=== PATIENT | male | born 1940 | race Caucasian/White ===

== ENCOUNTER 2021-04-13 14:58 | Emergency (ER) | payer MEDICARE ==
--- NOTE | 2021-04-13 15:05 | ERPHSYRPT ---
- History of Present Illness Time Seen by Provider: 04/13/21 15:05 Source: patient Physician History: left without being seen. pt does not want to be evaluated Allergies/Adverse Reactions: No Known Drug Allergies Allergy (Unverified 01/29/14 12:45) Home Medications: ALPRAZolam 0.25 MG [xanAX 0.25 MG] 0.125 mg PO HS 01/29/14 [History] Donepezil HCl 10 mg [Aricept 10 MG] 10 mg PO HS 01/29/14 [History] Felodipine 5 mg [Plendil ER 5 mg] 5 mg PO DAILY 01/29/14 [History] Sertraline HCl [Zoloft] 150 mg PO DAILY 01/29/14 [History] Hx Influenza Vaccination/Date Given: No Hx Pneumococcal Vaccination/Date Given: No - Past Medical History Pertinent Past Medical History: Yes Neurological History: TIA Cardiac History: Hypertension Psycho-Social History: Depression - Past Surgical History Past Surgical History: Yes Gastrointestinal: Hernia Repair Musculoskeletal: Orthopedic Surgery Other Surgical History: carpel tunnel carlota wrists - Social History Smoking Status: Never smoker Exposure to second hand smoke: Yes Drug Use: none Patient Lives Alone: No - Departure Departure Disposition: Left without being seen Clinical Impression: Left knee pain Condition: Stable Critical Care Time: No Referrals: BING MICHEL [Primary Care Provider] -
[2021-04-13 15:32] VITALS: BP 152/73; PULSE 86; O2SAT 96
== END 2021-04-13 15:45 | disposition left against medical advice (07) ==
LOC: ED 14:58
DX: M25.562 Pain in left knee (principal); Z79.899 Other long term (current) drug therapy; I10 Essential (primary) hypertension
CPT/HCPCS: 99283

== ENCOUNTER 2021-04-20 16:06 | Inpatient (IN) | payer MEDICARE ==
[2021-04-20 16:38] LABS: Absolute Neutrophil Ct (ANC) 9.82 (1.4-6.9); BASOPHIL % 0.4 % (0.0-0.4); Basophil (Absolute #) 0.05 (0-0.4); Eosinophil % 1.1 % (0.00-5.0); Eosinophil (Absolute #) 0.13 (0-0.5); Hematocrit 48.6 % (42-50); Hemoglobin 15.3 gm/dl (12.5-18.0); Lymphocyte (Absolute #) 0.98 (1.0-4.6); Lymphocytes % 8.2 % (24.0-44.0); Mean Cell Volume 95.3 fl (78-100); Mean Corpuscular Hgb Concent. 31.5 g/dl (32-36); Mean Platelet Volume 9.9 fl (7.5-11.0); Monocyte (Absolute #) 0.93 (0.0-1.3); Monocytes % 7.8 % (0.0-12.0); Neutrophil % 82.5 % (36.0-66.0); Platelet Count 296 K/mm3 (150-450); Red Cell Distribution Width 14.1 % (11.5-14.0); White Blood Count 11.9 K/mm3 (4.0-10.5)
[2021-04-20 16:47] LABS: INR 0.92 (0.8-3.0); PROTIME 10.9 SECONDS (9.4-12.5)
[2021-04-20 16:50] LABS: PTT 31.9 SECONDS (25.1-36.5)
[2021-04-20 16:54] LABS: ALBUMIN 3.8 g/dL (3.5-5.0); ALKALINE PHOSPHATASE 125 U/L (38-126); BLOOD UREA NITROGEN 24 mg/dL (9-20); CHLORIDE 103 mmol/L (98-107); Calcium 8.7 mg/dL (8.4-10.2); Carbon Dioxide 22 mmol/L (22-30); Creatinine 1 1.01 mg/dL (0.66-1.25); EST GLOMERULAR FILTRATION RATE > 60.0 ML/MIN; Glucose 141 mg/dL (74-106); Potassium 4.3 mmol/L (3.5-5.1); SGOT/AST 28 U/L (17-59); SGPT/ALT 23 U/L (0-50); SODIUM 136 mmol/L (137-145); Total Protein 6.9 g/dL (6.3-8.2)
--- NOTE | 2021-04-20 16:58 | XRAY ---
Indication: Lethargy and confusion. Comparison: April 23, 2018. Portable chest demonstrates new minimal left base infiltrate versus atelectasis and right midlung discoid atelectasis/scarring. Heart not enlarged. Bony thorax intact again with osteopenia and degenerative changes.
--- NOTE | 2021-04-20 17:33 | XRAY ---
Indication: Confusion. Altered mental status. Multiple contiguous axial images obtained through the head without contrast. Comparison: January 29, 2014. There is age-appropriate global atrophy with new moderate periventricular degenerative micro-ischemia bilaterally. No acute intracranial hemorrhage, abnormal extra-axial fluid collection, or mass effect. Fourth ventricle is midline without hydrocephalus. Bony calvarium intact. Visualized paranasal sinuses and mastoid air cells are clear. Impression: Nonacute senile brain.
--- NOTE | 2021-04-20 18:14 | ERPHSYRPT ---
- History of Present Illness Source: patient, other (Son) Exam Limitations: other (Dementia) Patient Subjective Stated Complaint: EMS states "He has a UTI that he has been getting shots for and he got a shot today and after he could not walk well and the family took him home and called 911. family stated he has a history of dementia and tia." Triage Nursing Assessment: Pt presented alert and confused. Pt hard of hearing, able to move all extremities. PT able to speak in clear full sentences pt in no apparent respiratory distress. Pt resting comfortably on the cot. Physician History: 81yo wm w gradual lower extremity weakness. Pt is currently being tx'ed for UTI w Rocephin injection x2. Pt denies focal weakness/fever/N/V/D/cough/melen a/hematochezia/dysuria/hematuria. Pt has dementia and is a poor historian. Timing/Duration: other (Several weeks) Modifying Factors: Improves With: movement Associated Symptoms: No nausea, No vomiting, No abdominal pain, No shortness of breath, No heartburn, No diaphoresis, No cough, No chills, No chest pain, No fever, No headaches, No loss of appetite, No malaise, No rash, No syncope, No seizure, No weakness Allergies/Adverse Reactions: No Known Drug Allergies Allergy (Verified 04/20/21 16:27) Home Medications: ALPRAZolam 0.25 MG [xanAX 0.25 MG] 0.125 mg PO HS 01/29/14 [History] Donepezil HCl 10 mg [Aricept 10 MG] 10 mg PO HS 01/29/14 [History] Felodipine 5 mg [Plendil ER 5 mg] 5 mg PO DAILY 01/29/14 [History] Sertraline HCl [Zoloft] 150 mg PO DAILY 01/29/14 [History] Duloxetine HCl [Cymbalta] 60 mg PO DAILY 04/20/21 [History] Furosemide 20 mg [Lasix 20 mg] 20 mg PO DAILY 04/20/21 [History] Lamotrigine 25 mg PO DAILY 04/20/21 [History] Memantine HCl [Namenda] 10 mg PO DAILY 04/20/21 [History] Potassium Chloride 8 meq PO DAILY 04/20/21 [History] Hx Tetanus, Diphtheria Vaccination/Date Given: No Hx Influenza Vaccination/Date Given: No Hx Pneumococcal Vaccination/Date Given: No Immunizations Up to Date: Yes Travel Risk - International Travel Have you traveled outside of the country in past 3 weeks: No - Coronavirus Screening Are you exhibiting any of the following symptoms?: No Close contact with a COVID-19 positive Pt in past 14-21 Days: No - Vaccine Status Have you recieved a Covid-19 vaccination: 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[employer]: [employer] - Vaccination Dates Date of 2cond Vaccination (if applicable): 08/31/2020 - Review of Systems Constitutional: No Symptoms Eyes: No Symptoms Ears, Nose, & Throat: No Symptoms Respiratory: No Symptoms Cardiac: No Symptoms Abdominal/Gastrointestinal: No Symptoms Genitourinary Symptoms: No Symptoms Musculoskeletal: No Symptoms Skin: No Symptoms Neurological: No Symptoms Psychological: No Symptoms Endocrine: No Symptoms Hematologic/Lymphatic: No Symptoms Immunological/Allergic: No Symptoms - Past Medical History Pertinent Past Medical History: Yes Neurological History: TIA Cardiac History: Hypertension Psycho-Social History: Depression - Past Surgical History Past Surgical History: Yes Gastrointestinal: Hernia Repair Musculoskeletal: Orthopedic Surgery Other Surgical History: carpel tunnel carlota wrists - Social History Smoking Status: Never smoker Exposure to second hand smoke: Yes Drug Use: none Patient Lives Alone: No Significant Family History: no pertinent family hx - Nursing Vital Signs Nursing Vital Signs: Initial Vital Signs Temperature 97.8 F 04/20/21 16:09 Pulse Rate 66 04/20/21 16:09 Respiratory Rate 20 04/20/21 16:09 Blood Pressure 117/62 04/20/21 16:09 O2 Sat by Pulse Oximetry 94 L 04/20/21 16:09 Pain Scale Pain Intensity 0 WNL - Physical Exam General Appearance: no apparent distress Eye Exam: PERRL/EOMI, eyes nml inspection Ears, Nose, Throat Exam: normal ENT inspection, TMs normal, pharynx normal, moist mucous membranes Neck Exam: normal inspection, non-tender, supple, full range of motion, No meningismus, No mass, No Brudzinski, No Kernig's Respiratory Exam: normal breath sounds, lungs clear, airway intact Cardiovascular Exam: regular rate/rhythm, normal heart sounds, normal peripheral pulses, No murmur Gastrointestinal/Abdomen Exam: soft, normal bowel sounds, No tenderness Back Exam: normal inspection, normal range of motion Extremity Exam: normal inspection, normal range of motion Neurologic Exam: alert (Disoriented to time), cooperative, service captain II-XII nml as tested, normal mood/affect, sensation nml, No motor deficits, No sensory deficit Skin Exam: normal color, warm, dry Lymphatic Exam: No adenopathy SpO2 Interpretation: normal SpO2: 96 O2 Delivery: Room Air - Course Nursing assessment & vital signs reviewed: Yes EKG Interpreted by Me: RATE (NSR/R66/Normal QT-QTc/Flat Twaves/No acute ST segment changes) - Radiology Exams Chest X-ray Interpretation: Discussed w/ radiologist (L base atelectasis vs infiltrate) - CT Exams Head CT Interpretation: Discussed w/radiologist (CT head neg) Chest CT Interpretation: Discussed w/radiologist (CT chest-Bibasilar atelectasis) Ordered Tests: Active Orders 24 hr Category Date Time Status EKG-ER Only STAT Care 04/20/21 16:23 Completed Heart-Healthy Diet Diet 04/20/21 Breakfast Active CHEST 1 VIEW (PORTABLE) Stat Exams 04/20/21 16:19 Completed CHEST WITHOUT CONTRAST [CT] Stat Exams 04/20/21 18:43 Taken HEAD WITHOUT CONTRAST [CT] Stat Exams 04/20/21 16:20 Completed CBC W DIFF AM.LAB Lab 04/21/21 04:00 Ordered CBC W DIFF Stat Lab 04/20/21 16:20 Completed CMP AM.LAB Lab 04/21/21 04:00 Ordered CMP Stat Lab 04/20/21 16:20 Completed Lactic Acid AM.LAB Lab 04/21/21 04:00 Ordered Lactic Acid Stat Lab 04/20/21 16:19 Completed Lactic Acid Stat Lab 04/20/21 18:36 Completed PROTIME WITH INR Stat Lab 04/20/21 16:20 Completed PTT Stat Lab 04/20/21 16:20 Completed TROPONIN Q3H Lab 04/20/21 16:20 Completed TROPONIN Q3H Lab 04/20/21 20:20 Completed TROPONIN Q3H Lab 04/20/21 22:30 Ordered TROPONIN Q3H Lab 04/21/21 01:30 Ordered TROPONIN Q3H Lab 04/21/21 04:30 Ordered UA W/RFX UR CULTURE Stat Lab 04/20/21 18:00 Completed Transfer Order Routine Transfer 04/20/21 Completed Medication Summary Generic Name Dose Route Start Last Admin Trade Name Jeniffer PRN Reason Stop Dose Admin Enoxaparin Sodium 40 mg 04/21/21 10:00 Enoxaparin Sodium SQ 05/21/21 09:59 DAILY JUANA Sodium Chloride 1,000 mls @ 100 mls/hr 04/20/21 20:30 04/20/21 22:21 Sodium Chloride 0.9% 1000 Ml IV 05/20/21 20:29 100 mls/hr .Q10H JUANA Administration Ondansetron HCl 4 mg 04/20/21 20:18 Zofran 4 Mg/2 Ml Vial IV 05/20/21 20:17 Q6H PRN PRN NAUSEA/VOMITING Pantoprazole Sodium 40 mg 04/21/21 10:00 Protonix 40 Mg Iv IV 05/21/21 09:59 Q24H10 JUANA Discontinued Medications Generic Name Dose Route Start Last Admin Trade Name Jeniffer PRN Reason Stop Dose Admin Lorazepam 1 mg 04/20/21 21:10 04/20/21 22:05 Ativan 2 Mg/1 Ml Vial IV 04/20/21 21:11 1 mg STAT ONE Administration Lorazepam Confirm 04/20/21 21:52 Ativan 2 Mg/1 Ml Vial Administered 04/20/21 21:53 Dose 2 mg .ROUTE .[facility] ONE Lab/Rad Data: Laboratory Result Diagrams 04/20/21 16:20 04/20/21 16:20 Laboratory Results 04/20/21 04/20/21 04/20/21 Range/Units 20:50 20:20 18:36 WBC (4.0-10.5) K/mm3 RBC (4.1-5.6) M/mm3 Hgb (12.5-18.0) gm/dl Hct (42-50) % MCV (78-100) fl MCH (26-32) pg MCHC (32-36) g/dl RDW (11.5-14.0) % Plt Count (150-450) K/mm3 MPV (7.5-11.0) fl Gran % (36.0-66.0) % Eos # (Auto) (0-0.5) Absolute Lymphs (auto) (1.0-4.6) Absolute Monos (auto) (0.0-1.3) Lymphocytes % (24.0-44.0) % Monocytes % (0.0-12.0) % Eosinophils % (0.00-5.0) % Basophils % (0.0-0.4) % Absolute Granulocytes (1.4-6.9) Basophils # (0-0.4) PT (9.4-12.5) SECONDS INR (0.8-3.0) APTT (25.1-36.5) SECONDS Sodium (137-145) mmol/L Potassium (3.5-5.1) mmol/L Chloride (98-107) mmol/L Carbon Dioxide (22-30) mmol/L Anion Gap (5-15) MEQ/L BUN (9-20) mg/dL Creatinine (0.66-1.25) mg/dL Estimated GFR ML/MIN Glucose (74-106) mg/dL Lactic Acid 2.0 (0.4-2.0) Calcium (8.4-10.2) mg/dL Total Bilirubin (0.2-1.3) mg/dL AST (17-59) U/L ALT (0-50) U/L Alkaline Phosphatase (38-126) U/L Troponin I < 0.012 (0.000-0.034) ng/mL Serum Total Protein (6.3-8.2) g/dL Albumin (3.5-5.0) g/dL Urine Color (YELLOW) Urine Appearance (CLEAR) Urine pH (5-6) Ur Specific [place] (1.005-1.025) Urine Protein (Negative) Urine Ketones (NEGATIVE) Urine Blood (0-5) Kt/ul Urine Nitrite (NEGATIVE) Urine Bilirubin (NEGATIVE) Urine Urobilinogen (0-1) mg/dL Ur Leukocyte Esterase (NEGATIVE) Urine WBC (Auto) (0-5) /HPF U Hyaline Cast (Auto) (0-2) /LPF U Epithel Cells (Auto) (FEW) /HPF Urine Bacteria (Auto) (NEGATIVE) /HPF Urine Mucus (Auto) (NEGATIVE) /HPF Urine Culture Reflexed (NO) Urine Glucose (NEGATIVE) mg/dL SARS-CoV-2 (PCR) NEGATIVE (NEGATIVE) 04/20/21 04/20/21 04/20/21 Range/Units 18:00 16:20 16:20 WBC (4.0-10.5) K/mm3 RBC (4.1-5.6) M/mm3 Hgb (12.5-18.0) gm/dl Hct (42-50) % MCV (78-100) fl MCH (26-32) pg MCHC (32-36) g/dl RDW (11.5-14.0) % Plt Count (150-450) K/mm3 MPV (7.5-11.0) fl Gran % (36.0-66.0) % Eos # (Auto) (0-0.5) Absolute Lymphs (auto) (1.0-4.6) Absolute Monos (auto) (0.0-1.3) Lymphocytes % (24.0-44.0) % Monocytes % (0.0-12.0) % Eosinophils % (0.00-5.0) % Basophils % (0.0-0.4) % Absolute Granulocytes (1.4-6.9) Basophils # (0-0.4) PT 10.9 (9.4-12.5) SECONDS INR 0.92 (0.8-3.0) APTT 31.9 (25.1-36.5) SECONDS Sodium (137-145) mmol/L Potassium (3.5-5.1) mmol/L Chloride (98-107) mmol/L Carbon Dioxide (22-30) mmol/L Anion Gap (5-15) MEQ/L BUN (9-20) mg/dL Creatinine (0.66-1.25) mg/dL Estimated GFR ML/MIN Glucose (74-106) mg/dL Lactic Acid (0.4-2.0) Calcium (8.4-10.2) mg/dL Total Bilirubin (0.2-1.3) mg/dL AST (17-59) U/L ALT (0-50) U/L Alkaline Phosphatase (38-126) U/L Troponin I < 0.012 (0.000-0.034) ng/mL Serum Total Protein (6.3-8.2) g/dL Albumin (3.5-5.0) g/dL Urine Color YELLOW (YELLOW) Urine Appearance CLEAR (CLEAR) Urine pH 5.0 (5-6) Ur Specific [place] 1.015 (1.005-1.025) Urine Protein NEGATIVE (Negative) Urine Ketones NEGATIVE (NEGATIVE) Urine Blood NEGATIVE (0-5) Kt/ul Urine Nitrite NEGATIVE (NEGATIVE) Urine Bilirubin NEGATIVE (NEGATIVE) Urine Urobilinogen NEGATIVE (0-1) mg/dL Ur Leukocyte Esterase NEGATIVE (NEGATIVE) Urine WBC (Auto) 0-2 (0-5) /HPF U Hyaline Cast (Auto) 0-2 (0-2) /LPF U Epithel Cells (Auto) RARE (FEW) /HPF Urine Bacteria (Auto) NONE (NEGATIVE) /HPF Urine Mucus (Auto) SLIGHT (NEGATIVE) /HPF Urine Culture Reflexed NO (NO) Urine Glucose NEGATIVE (NEGATIVE) mg/dL SARS-CoV-2 (PCR) (NEGATIVE) 04/20/21 04/20/21 04/20/21 Range/Units 16:20 16:20 16:19 WBC 11.9 H (4.0-10.5) K/mm3 RBC 5.10 (4.1-5.6) M/mm3 Hgb 15.3 (12.5-18.0) gm/dl Hct 48.6 (42-50) % MCV 95.3 (78-100) fl MCH 30.0 (26-32) pg MCHC 31.5 L (32-36) g/dl RDW 14.1 H (11.5-14.0) % Plt Count 296 (150-450) K/mm3 MPV 9.9 (7.5-11.0) fl Gran % 82.5 H (36.0-66.0) % Eos # (Auto) 0.13 (0-0.5) Absolute Lymphs (auto) 0.98 L (1.0-4.6) Absolute Monos (auto) 0.93 (0.0-1.3) Lymphocytes % 8.2 L (24.0-44.0) % Monocytes % 7.8 (0.0-12.0) % Eosinophils % 1.1 (0.00-5.0) % Basophils % 0.4 (0.0-0.4) % Absolute Granulocytes 9.82 H (1.4-6.9) Basophils # 0.05 (0-0.4) PT (9.4-12.5) SECONDS INR (0.8-3.0) APTT (25.1-36.5) SECONDS Sodium 136 L (137-145) mmol/L Potassium 4.3 (3.5-5.1) mmol/L Chloride 103 (98-107) mmol/L Carbon Dioxide 22 (22-30) mmol/L Anion Gap 15.0 (5-15) MEQ/L BUN 24 H (9-20) mg/dL Creatinine 1.01 (0.66-1.25) mg/dL Estimated GFR > 60.0 ML/MIN Glucose 141 H (74-106) mg/dL Lactic Acid 2.4 H (0.4-2.0) Calcium 8.7 (8.4-10.2) mg/dL Total Bilirubin 0.40 (0.2-1.3) mg/dL AST 28 (17-59) U/L ALT 23 (0-50) U/L Alkaline Phosphatase 125 (38-126) U/L Troponin I (0.000-0.034) ng/mL Serum Total Protein 6.9 (6.3-8.2) g/dL Albumin 3.8 (3.5-5.0) g/dL Urine Color (YELLOW) Urine Appearance (CLEAR) Urine pH (5-6) Ur Specific [place] (1.005-1.025) Urine Protein (Negative) Urine Ketones (NEGATIVE) Urine Blood (0-5) Kt/ul Urine Nitrite (NEGATIVE) Urine Bilirubin (NEGATIVE) Urine Urobilinogen (0-1) mg/dL Ur Leukocyte Esterase (NEGATIVE) Urine WBC (Auto) (0-5) /HPF U Hyaline Cast (Auto) (0-2) /LPF U Epithel Cells (Auto) (FEW) /HPF Urine Bacteria (Auto) (NEGATIVE) /HPF Urine Mucus (Auto) (NEGATIVE) /HPF Urine Culture Reflexed (NO) Urine Glucose (NEGATIVE) mg/dL SARS-CoV-2 (PCR) (NEGATIVE) - Progress Progress Note: 04/20/21 20:[address] White Counseled pt/family regarding: lab results, diagnosis, rad results - Departure Departure Disposition: In-patient Admission Clinical Impression: Altered mental status, Lethargy Condition: Stable Critical Care Time: No
[2021-04-20 18:30] LABS: Appearance CLEAR (CLEAR); Bilirubin NEGATIVE (NEGATIVE); Blood NEGATIVE Ery/ul (0-5); Epithelial Cells RARE /HPF (FEW); Glucose NEGATIVE (NEGATIVE); Hyaline Casts 0-2 /LPF (0-2); Ketones NEGATIVE (NEGATIVE); Leukocyte Esterase NEGATIVE (NEGATIVE); Mucus SLIGHT /HPF (NEGATIVE); Nitrite NEGATIVE (NEGATIVE); Protein,Urine Dip NEGATIVE (Negative); Specific Gravity 1.015 (1.005-1.025); Urobilinogen NEGATIVE mg/dL (0-1); WBC 0-2 /HPF (0-5)
[2021-04-20] MEDS ORDERED: Zofran 4 MG/2 ML VIAL IV PRN (20:18)
[2021-04-20] MEDS ORDERED: Ativan 2 MG/1 ML VIAL IV ONE (21:10)
[2021-04-20] MEDS ORDERED: Ativan 2 MG/1 ML VIAL ONE (21:52)
[2021-04-20] MEDS: Sodium Chloride 0.9% 1000 ML 1,000 ML IV SCH (22:21)
[2021-04-21] MEDS: TYLENOL 325 MG PO PRN ×2 (03:18→12:48)
[2021-04-21 05:16] LABS: Absolute Neutrophil Ct (ANC) 7.31 (1.4-6.9); BASOPHIL % 0.6 % (0.0-0.4); Basophil (Absolute #) 0.06 (0-0.4); Eosinophil % 2.3 % (0.00-5.0); Eosinophil (Absolute #) 0.23 (0-0.5); Hematocrit 43.9 % (42-50); Lymphocyte (Absolute #) 1.52 (1.0-4.6); Mean Cell Volume 95.2 fl (78-100); Mean Corpuscular Hemoglobin 30.4 pg (26-32); Mean Corpuscular Hgb Concent. 31.9 g/dl (32-36); Mean Platelet Volume 9.7 fl (7.5-11.0); Monocyte (Absolute #) 1.01 (0.0-1.3); Neutrophil % 72.1 % (36.0-66.0); Platelet Count 250 K/mm3 (150-450); Red Blood Count 4.61 M/mm3 (4.1-5.6); White Blood Count 10.1 K/mm3 (4.0-10.5)
[2021-04-21 05:32] LABS: ALBUMIN 3.3 g/dL (3.5-5.0); ALKALINE PHOSPHATASE 107 U/L (38-126); ANION GAP 10.4 MEQ/L (5-15); BLOOD UREA NITROGEN 23 mg/dL (9-20); CHLORIDE 104 mmol/L (98-107); Calcium 8.4 mg/dL (8.4-10.2); Carbon Dioxide 25 mmol/L (22-30); EST GLOMERULAR FILTRATION RATE > 60.0 ML/MIN; Glucose 111 mg/dL (74-106); Potassium 4.2 mmol/L (3.5-5.1); SGOT/AST 24 U/L (17-59); SGPT/ALT 19 U/L (0-50); SODIUM 135 mmol/L (137-145); Total Protein 6.1 g/dL (6.3-8.2)
[2021-04-21] MEDS: Sodium Chloride 0.9% 1000 ML 1,000 ML IV SCH ×2 (08:25→20:33)
--- NOTE | 2021-04-21 08:56 | XRAY ---
Indication: Lethargy and confusion. Abnormal chest x-ray. Multiple contiguous axial images obtained through the chest without contrast. Comparison: None Lungs demonstrates moderate bilateral subsegmental atelectasis/scarring, left greater than right. Peripheral right lung base demonstrates 4 mm noncalcified micronodule. Tiny medial right lower lobe calcified granuloma. No other pulmonary mass/nodule, infiltrate, effusion, or pneumothorax. Heart not enlarged. Aorta is mildly arteriosclerotic without aneurysm. Subcarinal calcified nodes. No pathologic mediastinal lymphadenopathy. Bony thorax intact with osteopenia and flowing osteophytes throughout the spine. Limited upper abdomen demonstrates tiny splenic calcified granuloma. Impression: 1. Bilateral subsegmental atelectasis/scarring, left greater than right. No acute cardiopulmonary abnormalities. 2. Right lower lobe 4 mm noncalcified micronodule. Finding possibly granulomatous as there is old granulomatous disease elsewhere. 3. Osteopenia and degenerative changes.
--- NOTE | 2021-04-21 09:09 | PCM.HP ---
History of Present Illness - Chief Complaint Chief Complaint: Lethargy/Mental Status Change History of Present Illness: is a 81 year old male who was admitted through ER last night with AMS. Was oriented to 2 (not oriented to year). He was being treated for UTI, had received 2 doses of IM rocephin in the office (last being yesterday afternoon). Labs nonacute and CT head nonacute. Last night had fever to 101.4 of which I was not apprised; this morning I did order blood culture x 2 and IV zosyn. This morning he tells me he is "feeling fine. I finally slept." Denies any pain. Per son, he repeats himself many times a day. He is unable to walk, very stiff, uses a walker but needs assistance to get out of bed or move around at all. - Review of Systems Constitutional: Fever All Other Systems: Reviewed and Negative (pt oriented x 3 this morning) Medications & Allergies Home Medications: Home Medication List Felodipine 5 mg [Plendil ER 5 mg] 5 mg PO DAILY 01/29/14 [History Confirmed 04/20/21] Duloxetine HCl [Cymbalta] 120 mg PO DAILY 04/20/21 [History Confirmed 04/21/21] Furosemide 20 mg [Lasix 20 mg] 20 mg PO DAILY 04/20/21 [History Confirmed 04/20/21] Memantine HCl [Namenda] 10 mg PO BID 04/20/21 [History Confirmed 04/21/21] Potassium Chloride 8 meq PO DAILY 04/20/21 [History Confirmed 04/20/21] ALPRAZolam [Alprazolam] 0.5 mg PO TID 04/21/21 [History Confirmed 04/21/21] Alprazolam 0.5 mg PO DAILY PRN PRN 04/21/21 [History Confirmed 04/21/21] Donepezil HCl 10 mg [Aricept 10 MG] 10 mg PO HS 04/21/21 [History Confirmed 04/21/21] Allergies/Adverse Reactions: Allergies Allergy/AdvReac Type Severity Reaction Status Date / Time No Known Drug Allergies Allergy Verified 04/20/21 16:27 - Past Medical History Past Medical History: Yes Neurological History: TIA Cardiac History: Hypertension Pyscho-Social History: Depression - Past Surgical History Past Surgical History: Yes GI Surgical History: Hernia Repair Musculskeletal Surgical Hx: Orthopedic Surgery Other Surgical History: carpel tunnel carlota wrists - Social History Smoking Status: Former smoker Exposure to second hand smoke: Yes Alcohol: None Drug Use: none Significant Family History: no pertinent family hx - Physical Exam Vital Signs: Vital Signs - 24 hr Temp Pulse Resp BP Pulse Ox 04/21/21 03:45 101.4 F 77 20 145/74 95 04/20/21 23:00 99.5 F 72 22 157/82 94 L 04/20/21 22:56 96 04/20/21 20:29 70 22 164/84 95 04/20/21 18:03 75 12 105/58 96 04/20/21 17:23 97.8 F 114 H 20 105/58 94 L 04/20/21 16:09 97.8 F 66 20 117/62 94 L General Appearance: no apparent distress, alert Neurologic Exam: oriented x 3, cooperative Ears, Nose, Throat Exam: moist mucous membranes Neck Exam: normal inspection Respiratory Exam: normal breath sounds, lungs clear, No crackles/rales, No rhonchi, No wheezing Cardiovascular Exam: regular rate/rhythm, normal heart sounds, No murmur Gastrointestinal/Abdomen Exam: soft, normal bowel sounds, No tenderness, No distention, No mass, No guarding, No rebound Extremity Exam: No pedal edema, No swelling Skin Exam: normal color, warm, diaphoresis (mild), No rash Results - Labs Lab/Micro Results: Lab Results-Last 24 Hours 04/20/21 04/20/21 04/20/21 Range/Units 16:19 16:20 16:20 WBC 11.9 H (4.0-10.5) K/mm3 RBC 5.10 (4.1-5.6) M/mm3 Hgb 15.3 (12.5-18.0) gm/dl Hct 48.6 (42-50) % MCV 95.3 (78-100) fl MCH 30.0 (26-32) pg MCHC 31.5 L (32-36) g/dl RDW 14.1 H (11.5-14.0) % Plt Count 296 (150-450) K/mm3 MPV 9.9 (7.5-11.0) fl Gran % 82.5 H (36.0-66.0) % Eos # (Auto) 0.13 (0-0.5) Absolute Lymphs (auto) 0.98 L (1.0-4.6) Absolute Monos (auto) 0.93 (0.0-1.3) Lymphocytes % 8.2 L (24.0-44.0) % Monocytes % 7.8 (0.0-12.0) % Eosinophils % 1.1 (0.00-5.0) % Basophils % 0.4 (0.0-0.4) % Absolute Granulocytes 9.82 H (1.4-6.9) Basophils # 0.05 (0-0.4) PT (9.4-12.5) SECONDS INR (0.8-3.0) APTT (25.1-36.5) SECONDS Sodium 136 L (137-145) mmol/L Potassium 4.3 (3.5-5.1) mmol/L Chloride 103 (98-107) mmol/L Carbon Dioxide 22 (22-30) mmol/L Anion Gap 15.0 (5-15) MEQ/L BUN 24 H (9-20) mg/dL Creatinine 1.01 (0.66-1.25) mg/dL Estimated GFR > 60.0 ML/MIN Glucose 141 H (74-106) mg/dL Lactic Acid 2.4 H (0.4-2.0) Calcium 8.7 (8.4-10.2) mg/dL Total Bilirubin 0.40 (0.2-1.3) mg/dL AST 28 (17-59) U/L ALT 23 (0-50) U/L Alkaline Phosphatase 125 (38-126) U/L Troponin I (0.000-0.034) ng/mL Serum Total Protein 6.9 (6.3-8.2) g/dL Albumin 3.8 (3.5-5.0) g/dL Urine Color (YELLOW) Urine Appearance (CLEAR) Urine pH (5-6) Ur Specific [place] (1.005-1.025) Urine Protein (Negative) Urine Ketones (NEGATIVE) Urine Blood (0-5) Kt/ul Urine Nitrite (NEGATIVE) Urine Bilirubin (NEGATIVE) Urine Urobilinogen (0-1) mg/dL Ur Leukocyte Esterase (NEGATIVE) Urine WBC (Auto) (0-5) /HPF U Hyaline Cast (Auto) (0-2) /LPF U Epithel Cells (Auto) (FEW) /HPF Urine Bacteria (Auto) (NEGATIVE) /HPF Urine Mucus (Auto) (NEGATIVE) /HPF Urine Culture Reflexed (NO) Urine Glucose (NEGATIVE) mg/dL SARS-CoV-2 (PCR) (NEGATIVE) 04/20/21 04/20/21 04/20/21 Range/Units 16:20 16:20 18:00 WBC (4.0-10.5) K/mm3 RBC (4.1-5.6) M/mm3 Hgb (12.5-18.0) gm/dl Hct (42-50) % MCV (78-100) fl MCH (26-32) pg MCHC (32-36) g/dl RDW (11.5-14.0) % Plt Count (150-450) K/mm3 MPV (7.5-11.0) fl Gran % (36.0-66.0) % Eos # (Auto) (0-0.5) Absolute Lymphs (auto) (1.0-4.6) Absolute Monos (auto) (0.0-1.3) Lymphocytes % (24.0-44.0) % Monocytes % (0.0-12.0) % Eosinophils % (0.00-5.0) % Basophils % (0.0-0.4) % Absolute Granulocytes (1.4-6.9) Basophils # (0-0.4) PT 10.9 (9.4-12.5) SECONDS INR 0.92 (0.8-3.0) APTT 31.9 (25.1-36.5) SECONDS Sodium (137-145) mmol/L Potassium (3.5-5.1) mmol/L Chloride (98-107) mmol/L Carbon Dioxide (22-30) mmol/L Anion Gap (5-15) MEQ/L BUN (9-20) mg/dL Creatinine (0.66-1.25) mg/dL Estimated GFR ML/MIN Glucose (74-106) mg/dL Lactic Acid (0.4-2.0) Calcium (8.4-10.2) mg/dL Total Bilirubin (0.2-1.3) mg/dL AST (17-59) U/L ALT (0-50) U/L Alkaline Phosphatase (38-126) U/L Troponin I < 0.012 (0.000-0.034) ng/mL Serum Total Protein (6.3-8.2) g/dL Albumin (3.5-5.0) g/dL Urine Color YELLOW (YELLOW) Urine Appearance CLEAR (CLEAR) Urine pH 5.0 (5-6) Ur Specific [place] 1.015 (1.005-1.025) Urine Protein NEGATIVE (Negative) Urine Ketones NEGATIVE (NEGATIVE) Urine Blood NEGATIVE (0-5) Kt/ul Urine Nitrite NEGATIVE (NEGATIVE) Urine Bilirubin NEGATIVE (NEGATIVE) Urine Urobilinogen NEGATIVE (0-1) mg/dL Ur Leukocyte Esterase NEGATIVE (NEGATIVE) Urine WBC (Auto) 0-2 (0-5) /HPF U Hyaline Cast (Auto) 0-2 (0-2) /LPF U Epithel Cells (Auto) RARE (FEW) /HPF Urine Bacteria (Auto) NONE (NEGATIVE) /HPF Urine Mucus (Auto) SLIGHT (NEGATIVE) /HPF Urine Culture Reflexed NO (NO) Urine Glucose NEGATIVE (NEGATIVE) mg/dL SARS-CoV-2 (PCR) (NEGATIVE) 04/20/21 04/20/21 04/20/21 Range/Units 18:36 20:20 20:50 WBC (4.0-10.5) K/mm3 RBC (4.1-5.6) M/mm3 Hgb (12.5-18.0) gm/dl Hct (42-50) % MCV (78-100) fl MCH (26-32) pg MCHC (32-36) g/dl RDW (11.5-14.0) % Plt Count (150-450) K/mm3 MPV (7.5-11.0) fl Gran % (36.0-66.0) % Eos # (Auto) (0-0.5) Absolute Lymphs (auto) (1.0-4.6) Absolute Monos (auto) (0.0-1.3) Lymphocytes % (24.0-44.0) % Monocytes % (0.0-12.0) % Eosinophils % (0.00-5.0) % Basophils % (0.0-0.4) % Absolute Granulocytes (1.4-6.9) Basophils # (0-0.4) PT (9.4-12.5) SECONDS INR (0.8-3.0) APTT (25.1-36.5) SECONDS Sodium (137-145) mmol/L Potassium (3.5-5.1) mmol/L Chloride (98-107) mmol/L Carbon Dioxide (22-30) mmol/L Anion Gap (5-15) MEQ/L BUN (9-20) mg/dL Creatinine (0.66-1.25) mg/dL Estimated GFR ML/MIN Glucose (74-106) mg/dL Lactic Acid 2.0 (0.4-2.0) Calcium (8.4-10.2) mg/dL Total Bilirubin (0.2-1.3) mg/dL AST (17-59) U/L ALT (0-50) U/L Alkaline Phosphatase (38-126) U/L Troponin I < 0.012 (0.000-0.034) ng/mL Serum Total Protein (6.3-8.2) g/dL Albumin (3.5-5.0) g/dL Urine Color (YELLOW) Urine Appearance (CLEAR) Urine pH (5-6) Ur Specific [place] (1.005-1.025) Urine Protein (Negative) Urine Ketones (NEGATIVE) Urine Blood (0-5) Kt/ul Urine Nitrite (NEGATIVE) Urine Bilirubin (NEGATIVE) Urine Urobilinogen (0-1) mg/dL Ur Leukocyte Esterase (NEGATIVE) Urine WBC (Auto) (0-5) /HPF U Hyaline Cast (Auto) (0-2) /LPF U Epithel Cells (Auto) (FEW) /HPF Urine Bacteria (Auto) (NEGATIVE) /HPF Urine Mucus (Auto) (NEGATIVE) /HPF Urine Culture Reflexed (NO) Urine Glucose (NEGATIVE) mg/dL SARS-CoV-2 (PCR) NEGATIVE (NEGATIVE) 04/21/21 04/21/21 04/21/21 Range/Units 05:00 05:00 05:00 WBC 10.1 (4.0-10.5) K/mm3 RBC 4.61 (4.1-5.6) M/mm3 Hgb 14.0 (12.5-18.0) gm/dl Hct 43.9 (42-50) % MCV 95.2 (78-100) fl MCH 30.4 (26-32) pg MCHC 31.9 L (32-36) g/dl RDW 14.0 (11.5-14.0) % Plt Count 250 (150-450) K/mm3 MPV 9.7 (7.5-11.0) fl Gran % 72.1 H (36.0-66.0) % Eos # (Auto) 0.23 (0-0.5) Absolute Lymphs (auto) 1.52 (1.0-4.6) Absolute Monos (auto) 1.01 (0.0-1.3) Lymphocytes % 15.0 L (24.0-44.0) % Monocytes % 10.0 (0.0-12.0) % Eosinophils % 2.3 (0.00-5.0) % Basophils % 0.6 (0.0-0.4) % Absolute Granulocytes 7.31 H (1.4-6.9) Basophils # 0.06 (0-0.4) PT (9.4-12.5) SECONDS INR (0.8-3.0) APTT (25.1-36.5) SECONDS Sodium 135 L (137-145) mmol/L Potassium 4.2 (3.5-5.1) mmol/L Chloride 104 (98-107) mmol/L Carbon Dioxide 25 (22-30) mmol/L Anion Gap 10.4 (5-15) MEQ/L BUN 23 H (9-20) mg/dL Creatinine 0.90 (0.66-1.25) mg/dL Estimated GFR > 60.0 ML/MIN Glucose 111 H (74-106) mg/dL Lactic Acid 1.3 (0.4-2.0) Calcium 8.4 (8.4-10.2) mg/dL Total Bilirubin 0.40 (0.2-1.3) mg/dL AST 24 (17-59) U/L ALT 19 (0-50) U/L Alkaline Phosphatase 107 (38-126) U/L Troponin I (0.000-0.034) ng/mL Serum Total Protein 6.1 L (6.3-8.2) g/dL Albumin 3.3 L (3.5-5.0) g/dL Urine Color (YELLOW) Urine Appearance (CLEAR) Urine pH (5-6) Ur Specific [place] (1.005-1.025) Urine Protein (Negative) Urine Ketones (NEGATIVE) Urine Blood (0-5) Kt/ul Urine Nitrite (NEGATIVE) Urine Bilirubin (NEGATIVE) Urine Urobilinogen (0-1) mg/dL Ur Leukocyte Esterase (NEGATIVE) Urine WBC (Auto) (0-5) /HPF U Hyaline Cast (Auto) (0-2) /LPF U Epithel Cells (Auto) (FEW) /HPF Urine Bacteria (Auto) (NEGATIVE) /HPF Urine Mucus (Auto) (NEGATIVE) /HPF Urine Culture Reflexed (NO) Urine Glucose (NEGATIVE) mg/dL SARS-CoV-2 (PCR) (NEGATIVE) - Radiology Impressions Radiology Exams & Impressions: Radiology Procedures Category Date Time Status CHEST 1 VIEW (PORTABLE) Stat Exams 04/20/21 16:19 Completed CHEST WITHOUT CONTRAST [CT] Stat Exams 04/20/21 18:43 Taken HEAD WITHOUT CONTRAST [CT] Stat Exams 04/20/21 16:20 Completed Assessment/Plan (1) UTI (urinary tract infection) Current Visit: Yes Status: Acute Qualifiers: Urinary tract infection type: acute cystitis Hematuria presence: without hematuria Qualified Code(s): N30.00 - Acute cystitis without hematuria Assessment & Plan: Failed outpatient. Starting on zosyn. Assume this may be the cause of the fever. Code(s): N39.0 - URINARY TRACT INFECTION, SITE NOT SPECIFIED (2) Gait abnormality Current Visit: Yes Status: Acute Assessment & Plan: PT consult. Code(s): R26.9 - UNSPECIFIED ABNORMALITIES OF GAIT AND MOBILITY (3) Altered mental status Current Visit: Yes Status: Resolved Code(s): R41.82 - ALTERED MENTAL STATUS, UNSPECIFIED
[2021-04-21] MEDS: Zosyn 3.375 GM Vial 3.375 GM in Sodium Chloride 100ML MINI-BAG PLUS 100 ML IV SCH ×4 (09:13→23:30)
[2021-04-21] MEDS ORDERED: xanAX 0.5 MG PO PRN (09:43)
[2021-04-21] MEDS ORDERED: MEDICATION INTERVENTION PO SCH (10:00)
[2021-04-21] MEDS ORDERED: FELODIPINE 5 MG PO SCH (10:00)
[2021-04-21] MEDS ORDERED: NON-FORMULARY ITEM (Potassium Chloride [Potassium Chloride] 8 MEQ) PO SCH (10:00)
[2021-04-21] MEDS ORDERED: NON-FORMULARY ITEM (Duloxetine Hcl [Cymbalta] 120 MG) PO SCH (10:00)
[2021-04-21] MEDS: Cymbalta 30 MG Capsule PO SCH (10:22)
[2021-04-21] MEDS: ENOXAPARIN SODIUM SQ SCH (10:22)
[2021-04-21] MEDS: LASIX 20 MG PO SCH (10:22)
[2021-04-21] MEDS: xanAX 0.5 MG PO SCH ×3 (10:22→22:16)
[2021-04-21] MEDS: PROTONIX 40 MG IV IV SCH (10:23)
[2021-04-21] MEDS: Klor Con 10 MEQ PO SCH (10:23)
[2021-04-21] MEDS: PATIENT OWN MEDICATION PO SCH (14:57)
[2021-04-22] MEDS: Zosyn 3.375 GM Vial 3.375 GM in Sodium Chloride 100ML MINI-BAG PLUS 100 ML IV SCH ×3 (05:06→17:55)
[2021-04-22] MEDS: Sodium Chloride 0.9% 1000 ML 1,000 ML IV SCH ×2 (07:29→18:38)
--- NOTE | 2021-04-22 08:13 | PCM.NOTE ---
Date and Time: 04/22/21811 Subjective Assessment: patient denies complaints, he is not oriented to time but is oriented to self and place. he states he feels ok, wants to go home to see his Objective Exam General Appearance: no apparent distress, alert Neurologic Exam: alert, cooperative, No oriented x 3 Respiratory Exam: normal breath sounds, lungs clear, No respiratory distress Cardiovascular Exam: regular rate/rhythm, normal heart sounds Gastrointestinal/Abdomen Exam: soft, No tenderness, No mass Extremity Exam: normal inspection, normal range of motion OBJECTIVE DATA Vital Signs: Vital Signs - 24 hr Temp Pulse Resp BP Pulse Ox 04/22/21 03:45 98.6 F 86 16 132/66 96 04/21/21 23:11 98.6 F 92 H 20 126/60 04/21/21 19:39 98.8 F 70 20 136/60 97 04/21/21 16:00 98.4 F 64 18 155/74 93 L 04/21/21 12:00 98.3 F 62 17 133/73 93 L Pain Assessment - Last Documented Pain Intensity 0 Pain Scale Used [facility] Intake and Output: Intake & Output 04/19/21 04/20/21 04/21/21 04/22/21 11:59 11:59 11:59 11:59 Intake Total 865 2160 Balance 865 2160 Weight 91 kg Radiology Exams: Radiology Procedures Category Date Time Status CHEST 1 VIEW (PORTABLE) Stat Exams 04/20/21 16:19 Completed CHEST WITHOUT CONTRAST [CT] Stat Exams 04/20/21 18:43 Completed HEAD WITHOUT CONTRAST [CT] Stat Exams 04/20/21 16:20 Completed Multi-Disciplinary Progress Notes: Multi-Disciplinary Progress Notes 04/21/21 11:13 Case Management Note by Marysol Ocampo NOT TAKING ANY NEW PATIENT'S AT THIS TIME- WILL SEND REFERRAL TO [facility] Initialized on 04/21/21 11:13 - END OF NOTE 04/21/21 09:03 Case Management Note by Mackenzie Mcnamara SPOKE WITH ISHA, PT'S SON AND DR. ESTELA PENA REGARDING NEEDS FOR PATIENT WHEN READY FOR DISCHARGE. [facility] REPORTS THAT THEY ARE WANTING A REHAB STAY, REPORTS THAT PT WILL NOT MOVE ON HIS OWN AT HOME, AND NEEDS TO BE IN A REHAB FACILITY FOR STRENGTHENING. SON REPORTS THAT HE HAS BECOME VERY DECONDITIONED, STIFF, AND UNABLE TO WALK. REPORTS THAT HE PREFERS [facility], BUT IF THEY ARE NOT ACCEPTING PT'S THEN [facility]OULD BE THEIR SECOND CHOICE. WILL MAKE REFERRAL. PT HAS MEDICARE ADVANTAGE [employer] AND WILL HAVE TO HAVE PRIOR AUTH BEFORE PT COULD GO TO RETIREMENT. Initialized on 04/21/21 09:03 - END OF NOTE Assessment/Plan (1) UTI (urinary tract infection) Current Visit: Yes Status: Acute Qualifiers: Urinary tract infection type: acute cystitis Hematuria presence: without hematuria Qualified Code(s): N30.00 - Acute cystitis without hematuria Assessment & Plan: on zosyn, 2 recent outpatient cultures both sens Code(s): N39.0 - URINARY TRACT INFECTION, SITE NOT SPECIFIED (2) Gait abnormality Current Visit: Yes Status: Acute Code(s): R26.9 - UNSPECIFIED ABNORMALITIES OF GAIT AND MOBILITY (3) Altered mental status Current Visit: Yes Status: Resolved Assessment & Plan: has acute on chronic worsening of dementia, apparently plan is to [facility] upon discharge. Code(s): R41.82 - ALTERED MENTAL STATUS, UNSPECIFIED
[2021-04-22] MEDS: PROTONIX 40 MG IV IV SCH (08:45)
[2021-04-22] MEDS: ENOXAPARIN SODIUM SQ SCH (09:20)
[2021-04-22] MEDS: Cymbalta 30 MG Capsule PO SCH (09:26)
[2021-04-22] MEDS: xanAX 0.5 MG PO SCH ×3 (09:26→21:12)
[2021-04-22] MEDS: LASIX 20 MG PO SCH (09:26)
[2021-04-22] MEDS: Klor Con 10 MEQ PO SCH (09:26)
[2021-04-22] MEDS: PATIENT OWN MEDICATION PO SCH (09:26)
[2021-04-23] MEDS: Zosyn 3.375 GM Vial 3.375 GM in Sodium Chloride 100ML MINI-BAG PLUS 100 ML IV SCH ×2 (01:06→05:48)
[2021-04-23 04:48] VITALS: O2SAT 91
[2021-04-23] MEDS: Sodium Chloride 0.9% 1000 ML 1,000 ML IV SCH ×2 (05:14→08:56)
[2021-04-23 06:51] LABS: Absolute Neutrophil Ct (ANC) 7.94 (1.4-6.9); BASOPHIL % 0.4 % (0.0-0.4); Basophil (Absolute #) 0.05 (0-0.4); Eosinophil % 2.9 % (0.00-5.0); Eosinophil (Absolute #) 0.32 (0-0.5); Hematocrit 43.3 % (42-50); Hemoglobin 13.7 gm/dl (12.5-18.0); Lymphocyte (Absolute #) 1.83 (1.0-4.6); Lymphocytes % 16.5 % (24.0-44.0); Mean Cell Volume 94.7 fl (78-100); Mean Corpuscular Hgb Concent. 31.6 g/dl (32-36); Mean Platelet Volume 10.3 fl (7.5-11.0); Monocyte (Absolute #) 0.98 (0.0-1.3); Monocytes % 8.8 % (0.0-12.0); Neutrophil % 71.4 % (36.0-66.0); Platelet Count 253 K/mm3 (150-450); Red Blood Count 4.57 M/mm3 (4.1-5.6); Red Cell Distribution Width 13.9 % (11.5-14.0); White Blood Count 11.1 K/mm3 (4.0-10.5)
[2021-04-23 07:43] VITALS: BP 171/79; PULSE 63
[2021-04-23 08:09] LABS: ANION GAP 10.4 MEQ/L (5-15); BLOOD UREA NITROGEN 14 mg/dL (9-20); CHLORIDE 104 mmol/L (98-107); Calcium 8.4 mg/dL (8.4-10.2); Carbon Dioxide 26 mmol/L (22-30); EST GLOMERULAR FILTRATION RATE > 60.0 ML/MIN; Glucose 101 mg/dL (74-106); Potassium 3.9 mmol/L (3.5-5.1); SODIUM 136 mmol/L (137-145)
[2021-04-23] MEDS: Cymbalta 30 MG Capsule PO SCH (08:48)
[2021-04-23] MEDS: LASIX 20 MG PO SCH (08:48)
[2021-04-23] MEDS: Klor Con 10 MEQ PO SCH (08:49)
[2021-04-23] MEDS: xanAX 0.5 MG PO SCH (08:49)
[2021-04-23] MEDS: PATIENT OWN MEDICATION PO SCH (08:49)
[2021-04-23] MEDS: ENOXAPARIN SODIUM SQ SCH (08:56)
[2021-04-23] MEDS: PROTONIX 40 MG IV IV SCH (08:56)
--- NOTE | 2021-04-23 14:14 | PCM.DS ---
Discharge Summary Date of Admission: 04/20/21 22:43 Date of Discharge: Admitting Physician: BING MICHEL Primary Care Provider: BING MICHEL Allergies Allergies No Known Drug Allergies Allergy (Verified 04/20/21 16:27) Hospital Summary - Hospital Course Hospital Course: Pt. steadily improved and by this morning was able to be discharged to intermediate for PT and general strengthening and moniter of UTI with continuation of po antibiotics. - Vitals & Intake/Output Vital Signs: Vital Signs Temperature 99.1 F 04/23/21 07:42 Pulse Rate 63 04/23/21 07:42 Respiratory Rate 18 04/23/21 07:42 Blood Pressure 171/79 04/23/21 07:42 O2 Sat by Pulse Oximetry 91 L 04/23/21 07:42 Intake & Output: Intake & Output 04/21/21 04/22/21 04/23/21 04/24/21 11:59 11:59 11:59 11:59 Intake Total 865 2400 4032 Balance 865 2400 4032 Weight 91 kg 91 kg - Lab Result Diagrams: 04/23/21 05:38 04/23/21 05:38 Lab Results-Last 24 Hrs: Lab Results-Last 24 Hours 04/23/21 04/23/21 Range/Units 05:38 05:38 WBC 11.1 H (4.0-10.5) K/mm3 RBC 4.57 (4.1-5.6) M/mm3 Hgb 13.7 (12.5-18.0) gm/dl Hct 43.3 (42-50) % MCV 94.7 (78-100) fl MCH 30.0 (26-32) pg MCHC 31.6 L (32-36) g/dl RDW 13.9 (11.5-14.0) % Plt Count 253 (150-450) K/mm3 MPV 10.3 (7.5-11.0) fl Gran % 71.4 H (36.0-66.0) % Eos # (Auto) 0.32 (0-0.5) Absolute Lymphs (auto) 1.83 (1.0-4.6) Absolute Monos (auto) 0.98 (0.0-1.3) Lymphocytes % 16.5 L (24.0-44.0) % Monocytes % 8.8 (0.0-12.0) % Eosinophils % 2.9 (0.00-5.0) % Basophils % 0.4 (0.0-0.4) % Absolute Granulocytes 7.94 H (1.4-6.9) Basophils # 0.05 (0-0.4) Sodium 136 L (137-145) mmol/L Potassium 3.9 (3.5-5.1) mmol/L Chloride 104 (98-107) mmol/L Carbon Dioxide 26 (22-30) mmol/L Anion Gap 10.4 (5-15) MEQ/L BUN 14 (9-20) mg/dL Creatinine 1.00 (0.66-1.25) mg/dL Estimated GFR > 60.0 ML/MIN Glucose 101 (74-106) mg/dL Calcium 8.4 (8.4-10.2) mg/dL Micro Results-Entire Visit: Microbiology 04/21/21 09:06 Blood Culture - Preliminary Blood NO GROWTH TO DATE 04/21/21 09:00 Blood Culture - Preliminary Blood NO GROWTH TO DATE - Procedures and Test Procedures and Tests throughout Hospitalization: Therapy Orders & Screens 04/21/21 09:08 PT Eval & Treat ( Order) ONCE Reason for Eval:: Stiff, trouble walking Diagnosis: Lethargy/Mental Status Change Discharge Exam General Appearance: no apparent distress, alert Neurologic Exam: alert, cooperative, normal mood/affect, confusion Eye Exam: PERRL Ears, Nose, Throat Exam: normal ENT inspection, pharynx normal, moist mucous membranes Neck Exam: normal inspection, non-tender, supple, full range of motion Respiratory Exam: normal breath sounds, lungs clear, No respiratory distress Cardiovascular Exam: regular rate/rhythm, normal heart sounds Gastrointestinal/Abdomen Exam: soft, No tenderness, No mass Male Genitalia Exam: deferred Rectal Exam: deferred Back Exam: normal inspection Extremity Exam: normal inspection Skin Exam: normal color, warm, dry, No rash, No petechiae Final Diagnosis/Problem List - Final Discharge Diagnosis/Problem (1) SunDown syndrome Status: Acute Assessment & Plan: Continue xanax PRN Code(s): F05 - DELIRIUM DUE TO KNOWN PHYSIOLOGICAL CONDITION (2) Failure of outpatient treatment Status: Acute Assessment & Plan: continue PO antibiotics for now Code(s): Z78.9 - OTHER SPECIFIED HEALTH STATUS (3) UTI (urinary tract infection) Status: Acute Assessment & Plan: po abx in op facility with planned PT for improvement of generalized function Code(s): N39.0 - URINARY TRACT INFECTION, SITE NOT SPECIFIED - Discharge Discharge Date: 04/23/21 Disposition: DC TO [facility] Condition: Stable Prescriptions: New Acetaminophen 325 mg [Tylenol 325 mg] 650 mg PO Q4H PRN PRN tablet PRN Reason: Pain And/Or Fever Cephalexin Mh 500 mg [Keflex 500 mg] 500 mg PO TID 10 Days Continue Felodipine 5 mg [Plendil ER 5 mg] 5 mg PO DAILY Potassium Chloride 8 meq PO DAILY Furosemide 20 mg [Lasix 20 mg] 20 mg PO DAILY Memantine HCl [Namenda] 10 mg PO BID Duloxetine HCl [Cymbalta] 120 mg PO DAILY ALPRAZolam [Alprazolam] 0.5 mg PO TID Alprazolam 0.5 mg PO DAILY PRN PRN PRN Reason: Anxiety Donepezil HCl 10 mg [Aricept 10 MG] 10 mg PO HS Additional Instructions: LONG-TERM ORDERS -HEART HEALTHY DIET -PT/OT EVAL AND TREAT -SEE ATTACHED MED LIST FOR CURRENT MED ORDERS Forms: Transfer Record [facility]
== END 2021-04-23 11:27 | DRG 880 ==
LOC: ED 16:06 → MED SURG 22:43
PROVIDERS: ADMIT Family Medicine; ATTEND Family Medicine
DX: F05 Delirium due to known physiological condition (principal); N39.0 Urinary tract infection, site not specified; R26.9 Unspecified abnormalities of gait and mobility; I10 Essential (primary) hypertension; Z86.73 Personal history of transient ischemic attack (TIA), and cerebral infarction without residual deficits; Z79.899 Other long term (current) drug therapy; Z20.822 Contact with and (suspected) exposure to COVID-19
CPT/HCPCS: 36415; 70450; 71045; 71250; 80048; 80053; 81001; 83605; 84484; 85025; 85610; 85730; 87040; 93005; 96374; 97110; 97161; 97530; 99285; U0003; J1650; J2060; A9270-GY